=== PATIENT | female | born 1960 | race Caucasian/White ===

== ENCOUNTER 2024-08-10 08:02 | Outpatient (CLI) | payer MEDICARE | END 2024-08-10 08:03 | disposition home or self-care (01) | LOC: BICULT 08:02 | PROVIDERS: ATTEND Internal Medicine Gastroenterology | DX: K76.89 Other specified diseases of liver (principal); K90.0 Celiac disease; B96.81 Helicobacter pylori [H. pylori] as the cause of diseases classified elsewhere; Z86.0100 Personal history of colon polyps, unspecified | CPT/HCPCS: 76705 ==